=== PATIENT | male | born 1975 | race Caucasian/White ===

== ENCOUNTER 2019-05-22 23:54 | Emergency (ER) | payer SELFPAY ==
[2019-05-23 00:59] LABS: Absolute Lymphocytes (CBC) 1.6 K/uL (0.7-4.9); Basophils % 0.2 % (0-1.3); Eosinophils % 4.3 % (0-4.4); Hematocrit 45.5 % (39.6-49.0); Lymphocytes % 25.8 % (15.3-44.8); Monocytes % 11.1 % (3.3-12.3)
[2019-05-23 01:07] LABS: Protime INR 0.96
[2019-05-23 01:18] LABS: ALT/SGPT 17 U/L (12-78); AST/SGOT 11 U/L (15-37); Albumin 3.7 g/dL (3.4-5.0); Alkaline Phosphatase 63 U/L (45-117); BUN Blood Urea Nitrogen 25 mg/dL (7-18); Bicarbonate 26 mmol/L (21-32); Bilirubin Direct < 0.1 mg/dL (0-0.2); Bilirubin Total 0.3 mg/dL (0.2-1.0); Glucose Level 99 mg/dL (74-106); Lipase 110 U/L (73-393); Potassium 3.8 mmol/L (3.5-5.1); Protein, Total 7.5 g/dL (6.4-8.2); Sodium Level 141 mmol/L (136-145)
[2019-05-23] MEDS ORDERED: KETOROLAC 30 MG/ML INJ ONE (02:07)
[2019-05-23] MEDS ORDERED: ONDANSETRON 4 MG/2 ML VIAL ONE (02:08)
[2019-05-23] MEDS ORDERED: PANTOPRAZOLE 40 MG INJ ONE (02:08)
[2019-05-23] MEDS ORDERED: NA CHLORIDE 0.9% 1,000 ML ONE (02:08)
--- NOTE | 2019-05-23 02:31 | EDPHYS ---
Physician Documentation [facility] Name: Edward Novak Age: 43 yrs Sex: Male : 1975 Arrival Date: 05/22/2019 Time: 23:56 Bed 5 Private MD: ED Physician Aleksandr Fulton HPI: 05/23 00:45 This 43 yrs old Male presents to ER via Ambulatory with complaints of cp Abdominal Pain, Vomiting, Black/Tarry Stools. 00:45 The patient presents with abdominal pain in the epigastric area, in the upper abdomen. cp 00:45 Onset: The symptoms/episode began/occurred 3 day(s) ago. The symptoms radiate to right cp back. Associated signs and symptoms: Pertinent positives: nausea, vomiting, Pertinent negatives: chest pain, constipation, diarrhea, fever, palpitations, testicular pain, vomiting blood. The symptoms are described as waxing/waning. Patient reports noticing black stools today after taking Pepto Bismol. Historical: - Allergies: 00:17 No Known Allergies; aa1 - Home Meds: 00:17 None [Active]; aa1 - PMHx: 00:17 Pancreatitis; aa1 - PSHx: 00:17 None; aa1 - Immunization history:: Flu vaccine is not up to date. - Social history:: Smoking status: Patient uses tobacco products, smokes one-half pack cigarettes per day. - Ebola Screening: : No symptoms or risks identified at this time. ROS: 00:55 Constitutional: Positive for poor PO intake, Negative for body aches, chills, fever. cp 00:55 Eyes: Negative for injury, pain, redness, and discharge. cp 00:55 ENT: Negative for drainage from ear(s), ear pain, sore throat, difficulty swallowing, difficulty handling secretions. 00:55 Cardiovascular: Negative for chest pain, palpitations. 00:55 Respiratory: Negative for cough, shortness of breath, wheezing. 00:55 Abdomen/GI: Positive for abdominal pain, nausea and vomiting, anorexia, black/tarry stool, Negative for diarrhea, constipation. 00:55 Back: Positive for radiated pain. 00:55 : Negative for urinary symptoms, testicular pain 00:55 All other systems are negative. Exam: 01:06 Constitutional: The patient appears in no acute distress, alert, awake, cp non-diaphoretic, non-toxic, well developed, well nourished. 01:06 Head/Face: Normocephalic, atraumatic. cp 01:06 Eyes: Periorbital structures: appear normal, Conjunctiva: normal, no exudate, no injection, Sclera: no appreciated abnormality, Lids and lashes: appear normal, bilaterally. 01:06 ENT: External ear(s): are unremarkable, Nose: is normal, Mouth: Lips: moist, Oral mucosa: pink and intact, moist, Posterior pharynx: is normal, airway is patent, no erythema, no exudate. 01:06 Chest/axilla: Inspection: normal, Palpation: is normal, no crepitus, no tenderness. 01:06 Cardiovascular: Rate: normal, Rhythm: regular, Edema: is not appreciated, JVD: is not appreciated. 01:10 Respiratory: the patient does not display signs of respiratory distress, Respirations: cp normal, no use of accessory muscles, no retractions, no splinting, no tachypnea, labored breathing, is not present, Breath sounds: are clear throughout, no decreased breath sounds, no stridor, no wheezing. 01:10 Abdomen/GI: Inspection: abdomen appears normal, Bowel sounds: active, all quadrants, cp Palpation: soft, in all quadrants, moderate abdominal tenderness, in the epigastric area and right upper quadrant, rebound tenderness, is not appreciated, involuntary guarding, is not appreciated. 01:10 Back: ROM is normal. Vital Signs: 00:17 BP 128 / 88; Pulse 66; Resp 16; Temp 98.5; Pulse Ox 99% on R/A; Weight 79.38 kg; Height aa1 5 ft. 11 in. (180.34 cm); Pain 7/10; 00:30 BP 140 / 90; Pulse 74; Resp 17; Pulse Ox 98% ; rv 00:57 BP 140 / 90; Pulse 67; Resp 16; Temp 98.3; Pulse Ox 97% on R/A; rv 01:00 BP 115 / 70; Pulse 66; Resp 16; Pulse Ox 98% on R/A; rv 02:47 BP 120 / 75; Pulse 55; Resp 15; Temp 98.2; Pulse Ox 100% ; rv 00:17 Body Mass Index 24.41 (79.38 kg, 180.34 cm) aa1 MDM: 00:04 Patient medically screened. cp 01:00 Differential diagnosis: cholecystitis, Cholelithiasis, diverticulitis, non-specific abd cp pain, pancreatitis, Peptic Ulcer Disease, Perf. Duodenal Ulcer, Perf. Gastric Ulcer, Ureterolithiasis, urinary tract infection. 02:30 Data reviewed: vital signs, nurses notes, lab test result(s), radiologic studies, CT cp scan. 02:30 Counseling: I had a detailed discussion with the patient and/or guardian regarding: the cp historical points, exam findings, and any diagnostic results supporting the discharge/admit diagnosis, lab results, radiology results, the need for outpatient follow up, a pick up operator, to return to the emergency department if symptoms worsen or persist or if there are any questions or concerns that arise at home. Response to treatment: the patient's symptoms have markedly improved after treatment, Pain and nausea improved. No vomiting observed while in ED. CT negative for acute findings. Will discharge to home for continued monitoring. 05/23 00:46 Order name: PT-INR cp 05/23 00:46 Order name: Ptt, Activated cp 05/23 00:46 Order name: Basic Metabolic Panel cp 05/23 00:46 Order name: CBC with Diff cp 05/23 00:46 Order name: Creatinine for Radiology; Complete Time: 01: cp 05/23 00:46 Order name: Hepatic Function; Complete Time: 01: cp 05/23 01:34 Interpretation: Normal except: AST 11; GLOB 3.8; A/G 1.0. cp 05/23 00:46 Order name: CT Abd/Pelvis - IV Contrast Only cp 05/23 00:46 Order name: Lipase; Complete Time: 01:33 cp 05/23 00:47 Order name: Protime (+INR); Complete Time: 01:33 EDMS 05/23 00:47 Order name: PTT, Activated Partial Thromb; Complete Time: : EDMS 05/23 00:47 Order name: Basic Metabolic Panel; Complete Time: 01: EDMS 05/23 01:34 Interpretation: Normal except: CL 109; BUN 25; GFR 80. cp 05/23 00:47 Order name: CBC with Automated Diff; Complete Time: 01:33 EDMS 05/23 02:05 Interpretation: Reviewed. cp 05/23 00:46 Order name: IV Saline Lock; Complete Time: 00:55 cp 05/23 00:46 Order name: Labs collected and sent; Complete Time: 00:55 cp 05/23 01:35 Order name: NPO cp Administered Medications: 01:50 Drug: NS 0.9% 1000 ml Route: IV; Rate: 1 bolus; Site: right antecubital; ea 02:46 Follow up: IV Status: Completed infusion rv 01:55 Drug: ProTONIX 40 mg Route: IVP; Site: right antecubital; ea 02:46 Follow up: Response: No adverse reaction rv 01:56 Drug: TORadol 30 mg Route: IVP; Site: right antecubital; ea 02:46 Follow up: Response: No adverse reaction rv 01:58 Drug: Zofran 4 mg Route: IVP; Site: right antecubital; ea 02:46 Follow up: Response: No adverse reaction rv 02:45 Drug: GI Cocktail without - (Maalox Suspension 30 ml, Lidocaine Liquid 2 % 15 rv ml) Route: PO; 02:45 Follow up: Response: Medication administered at discharge. rv Disposition: 05/23/19 02:31 Discharged to Home. Impression: Upper abdominal pain, unspecified. - Condition is Stable. - Discharge Instructions: Abdominal Pain, Adult. - Prescriptions for Protonix 40 mg Oral Tablet - take 1 tablet by ORAL route once daily; 30 tablet. - Medication Reconciliation Form, Thank You Letter, Antibiotic Education, Prescription Opioid Use form. - Follow up: Pilo Clark MD; When: 1 week; Reason: Recheck today's complaints. - Problem is new. - Symptoms have improved. Addendum: 05/26/2019 19:26 Co-signature as Attending Physician, Aleksandr Fulton MD. g s Signatures: Dispatcher [employer] EDMS Corazon Kumar RN RN aa1 Martín Mai PA PA cp Antunez, Elena, RN RN ea Starr, Gregory, MD MD gs Vicente, Ronaldo RN RN rv Corrections: (The following items were deleted from the chart) 05/23 02:48 02:31 05/23/2019 02:31 Discharged to Home. Impression: Upper abdominal pain, rv unspecified. Condition is Stable. Forms are Medication Reconciliation Form, Thank You Letter, Antibiotic Education, Prescription Opioid Use. Follow up: Pilo Clark; When: 1 week; Reason: Recheck today's complaints. Problem is new. Symptoms have improved. cp
--- NOTE | 2019-05-23 02:31 | ER ---
Nurse's Notes [facility] Name: Edward Novak Age: 43 yrs Sex: Male : 1975 Arrival Date: 05/22/2019 Time: 23:56 Bed 5 Private MD: Diagnosis: Upper abdominal pain, unspecified Presentation: 05/23 00:06 Presenting complaint: Patient states: upper abd pain and vomiting x 3 days. Reports aa1 symptoms worse after eating. States he noticed today his stool was black but reports he did take multiple doses of pepto bismol. Transition of care: patient was not received from another setting of care. Onset of symptoms was May 20, 2019. Risk Assessment: Do you want to hurt yourself or someone else? Patient reports no desire to harm self or others. Initial Sepsis Screen: Does the patient meet any 2 criteria? No. Patient's initial sepsis screen is negative. Does the patient have a suspected source of infection? No. Patient's initial sepsis screen is negative. Care prior to arrival: None. 00:06 Method Of Arrival: Ambulatory aa1 00:06 Acuity: MILDRED 3 aa1 Triage Assessment: 00:17 General: Appears in no apparent distress. comfortable, Behavior is calm, cooperative, aa1 appropriate for age. Historical: - Allergies: 00:17 No Known Allergies; aa1 - Home Meds: 00:17 None [Active]; aa1 - PMHx: 00:17 Pancreatitis; aa1 - PSHx: 00:17 None; aa1 - Immunization history:: Flu vaccine is not up to date. - Social history:: Smoking status: Patient uses tobacco products, smokes one-half pack cigarettes per day. - Ebola Screening: : No symptoms or risks identified at this time. Screenin:11 Abuse screen: Denies threats or abuse. Denies injuries from another. Nutritional rv screening: No deficits noted. Tuberculosis screening: No symptoms or risk factors identified. Fall Risk None identified. Assessment: 00:10 General: Appears in no apparent distress. uncomfortable, Behavior is calm, cooperative. rv Pain: Complains of pain in abdomen. Pain: Pain currently is 7 out of 10 on a pain scale. at worst was 8 out of 10 on a pain scale. Pain: Quality of pain is described as sharp. Neuro: Level of Consciousness is awake, alert, obeys commands, Oriented to person, place, time, situation. Cardiovascular: Patient's skin is warm and dry. Respiratory: Airway is patent. GI: Bowel sounds present X 4 quads. Abd is soft Abdomen is tender to palpation X 4 quads. GI: Reports diarrhea. : No signs and/or symptoms were reported regarding the genitourinary system. EENT: No signs and/or symptoms were reported regarding the EENT system. Derm: Skin is intact. Musculoskeletal: No signs and/or symptoms reported regarding the musculoskeletal system. Vital Signs: 00:17 BP 128 / 88; Pulse 66; Resp 16; Temp 98.5; Pulse Ox 99% on R/A; Weight 79.38 kg; Height aa1 5 ft. 11 in. (180.34 cm); Pain 7/10; 00:30 BP 140 / 90; Pulse 74; Resp 17; Pulse Ox 98% ; rv 00:57 BP 140 / 90; Pulse 67; Resp 16; Temp 98.3; Pulse Ox 97% on R/A; rv 01:00 BP 115 / 70; Pulse 66; Resp 16; Pulse Ox 98% on R/A; rv 02:47 BP 120 / 75; Pulse 55; Resp 15; Temp 98.2; Pulse Ox 100% ; rv 00:17 Body Mass Index 24.41 (79.38 kg, 180.34 cm) aa1 ED Course: 05/22 23:56 Patient arrived in ED. es 07 00:03 Martín Mai PA is PHCP. cp 00:03 Aleksandr Fulton MD is Attending Physician. cp 00:09 Laurent Bermudez RN is Primary Nurse. rv 00:11 Patient has correct armband on for positive identification. Placed in gown. Bed in low rv position. Call light in reach. Side rails up X 1. Adult w/ patient. Pulse ox on. NIBP on. 00:13 Triage completed. aa1 00:17 Arm band placed on right wrist. Patient placed in an exam room, on a stretcher. aa1 00:55 Ptt, Activated Sent. rv 00:55 PT-INR Sent. rv 00:55 Basic Metabolic Panel Sent. rv 00:55 CBC with Diff Sent. rv 00:56 Inserted saline lock: 20 gauge in right forearm, using aseptic technique. Blood rv collected. 01:42 CT Abd/Pelvis - IV Contrast Only In Process Unspecified. EDMS 02:30 Pilo Clark MD is Referral Physician. cp 02:47 No provider procedures requiring assistance completed. IV discontinued, intact, rv bleeding controlled, No redness/swelling at site. Pressure dressing applied. Administered Medications: 01:50 Drug: NS 0.9% 1000 ml Route: IV; Rate: 1 bolus; Site: right antecubital; ea 02:46 Follow up: IV Status: Completed infusion rv 01:55 Drug: ProTONIX 40 mg Route: IVP; Site: right antecubital; ea 02:46 Follow up: Response: No adverse reaction rv 01:56 Drug: TORadol 30 mg Route: IVP; Site: right antecubital; ea 02:46 Follow up: Response: No adverse reaction rv 01:58 Drug: Zofran 4 mg Route: IVP; Site: right antecubital; ea 02:46 Follow up: Response: No adverse reaction rv 02:45 Drug: GI Cocktail without - (Maalox Suspension 30 ml, Lidocaine Liquid 2 % 15 rv ml) Route: PO; 02:45 Follow up: Response: Medication administered at discharge. rv Outcome: 02:31 Discharge ordered by MD. cp 02:48 Discharged to home ambulatory. rv 02:48 Condition: good 02:48 Discharge instructions given to patient, family, Instructed on discharge instructions, follow up and referral plans. medication usage, Demonstrated understanding of instructions, follow-up care, medications, Prescriptions given X 1. 02:48 Patient left the ED. rv Signatures: Dispatcher [employer] EDCorazon Troy RN RN aa1 Laura Powell Corey, PA PA Margoth Crowell RN RN Laurent Bob RN RN rv
[2019-05-23] MEDS ORDERED: MAGNE/ALUM HYDROXD 30 ML UCUP ONE (02:50)
[2019-05-23] MEDS ORDERED: LIDOCAINE VISCOUS 2% SOLN 15 ML UDC ONE (02:51)
--- NOTE | 2019-05-23 09:11 | RAD REPORT ---
EXAM DESCRIPTION: CT - Abdomen Pelvis W Contrast - 05/23/2019 2:43 am CLINICAL HISTORY: The patient is 43 years old and is Male; right upper abdomen pain TECHNIQUE: Axial computed tomography images of the abdomen and pelvis with intravenous contrast. S agittal and coronal reformatted images were created and reviewed. This CT exam was performed using one or more of the following dose reduction techniques: automated exposure control, adjustment of t he mA and/or kV according to patient size, and/or use of iterative reconstruction technique. COMPARISON: No relevant prior studies available. FINDINGS: LUNG BASES: Unremarkable. No mass. No consolidation. ABDOMEN: LIVER: Unremarkable. No mass. GALLBLADDER AND BILE DUCTS: No calcified stones. No ductal dilation. PANCREAS: No ductal dilation. No mass. SPLEEN: Unremarkable. ADRENALS: Unremarkable. No mass. KIDNEYS AND URETERS: Unremarkable. No solid mass. No hydronephrosis. STOMACH AND BOWEL: Stomach is moderately distended. The small bowel is normal in caliber. A mode rate amount stool is present throughout the colon. There is no mucosal thickening or evidence of ike l obstruction. PELVIS: APPENDIX: The appendix is normal in caliber without surrounding inflammation. BLADDER: Unremarkable. No mass. REPRODUCTIVE: Unremarkable as visualized. ABDOMEN and PELVIS: INTRAPERITONEAL SPACE: Unremarkable. No free air. No significant fluid collection. BONES/JOINTS: No acute fracture. SOFT TISSUES: The soft tissues are normal. VASCULATURE: Unremarkable. No abdominal aortic aneurysm. LYMPH NODES: Unremarkable. No enlarged lymph nodes. IMPRESSION: No acute findings on this contrasted CT of the abdomen and pelvis to explain the patient 's symptoms. Electronically signed by: Mayra Montes De Oca MD 05/23/2019 1:56 AM CDT Due to temporary technical issues with the PACS/Fluency reporting system, reports are being signed by the in house radiologist as a courtesy to ensure prompt reporting. The interpreting radiologist is f ully responsible for the content of the report.
== END 2019-05-23 02:48 | disposition home or self-care (01) ==
LOC: ER 23:54
DX: R10.10 Upper abdominal pain, unspecified (principal); F17.210 Nicotine dependence, cigarettes, uncomplicated
CPT/HCPCS: 36415; 74177; 80048; 80076; 83690; 85025; 85610; 85730; 96361; 96374; 96375; 99284; C9113; J2405; J7030; Q9967

== ENCOUNTER 2023-07-17 11:49 | Emergency (ER) | payer OTHER, SELFPAY ==
--- OUTSIDE RECORDS SUMMARY | 2023-07-17 11:52 | XMS REPORT | Continuity of Care Document ---
:1975 Author Organization [facility] t Address [address] [facility] [place] [address] Care Team Providers Name Role Phone PCP, PATIENT DOES NOT HAVE A Primary Care Physician Unavaila ble MILAGROS CHAVEZ Attending Clinician Unavailable Milagros Chavez MD Attending Clinician MILAGROS CHAVEZ Admitting Clinician Unavailable Payers Payer Name Policy Type Policy Number Effective Date Expiration Date S ource [facility] [id number] Problems This patient has no known problems. Allergies, Adverse Reactions, Alerts Allergy Allergy Status Severity Reaction(s) Onset Inactive Treating Comm ents Source Name Type Date Date Clinician Latex Propensi Active Rash Univers ty to 16 ity of adverse 00:00: [place] reaction [address] [place] [address] LATEX DRUG Active Rash Univers INGREDI 16 ity of 00:00: [place] [address] [place] [address] Social History Social Habit Start Date Stop Date Quantity Comments Source History of tobacco Snuff User Univer sity of use [facility] Cigarettes smoked 2023-05-03 2023-05-03 Univers ity of current (pack per 00:00:00 00:00:00 ) - Reported Branch Cigarette 2023-05-03 2023-05-03 University of pack-years 00:00:00 00:00:00 [facility] Tobacco use and 2023-05-03 2023-05-03 User of Universit y of exposure 00:00:00 00:00:00 smokeless [facility] Alcohol intake 2023-05-03 2023-05-03 Ex-drinker University of 00:00:00 00:00:00 (finding) [facility] Tobacco Comment 2023-05-03 2023-05-03 Down to 5-6 cigs Uni versity of 00:00:00 00:00:00 /day [facility] Alcohol Comment 2023-05-03 2023-05-03 quit 2016 Universit y of 00:00:00 00:00:00 [facility] Sex [birth year] Universit y of 00:00:00 00:00:00 [facility] Smoking Status Start Date Stop Date Source Smokes tobacco daily 2023-05-03 00:00:00 [facility] Medications Ordered Filled Start Stop Current Ordering Indication Dosage Frequency Signature Comments Components Source Medication Medication Date Date Medication? Clinician (SIG) Name Name cefTRIAXone 2022- No 500mg 500 mg, IV Univers (ROCEPHIN) 05-04 Piggyback, it y of 500 mg in 03:00: 03:21 [place]CE, 1 [place] NaCl 0.9% 00 :00 dose, On Medica l (NS) 100 mL [facility] piggyback 05/03/23 at 2200, Administer over 30 Minutes, 100 mL
R cecilia for Anti-Infec tive: Empiric Therapy for Suspected Infection< br>Empiric Therapy Site: Other
O ther site: testicles< br>Duratio n of therapy: 72 hours levoFLOXaci 2022- No 500mg 500 mg, U nivers n 05-04 Oral, ity of (LEVAQUIN) 02:30: 02:47 ONCE, 1 [place] as tablet 500 00 :00 dose, On Medic al mg [facility] 05/03/23 at 2130, HEATHER
Re ason for Anti-Infec tive: Empiric Therapy for Suspected Infection< br>Empiric Therapy Site: Urine
D uration of therapy: 72 hours doxycycline 2022- No 100mg 100 mg, U nivers hyclate 05-04 Oral, ity of (Vibramycin 02:30: 02:47 [place]CE, 1 [place] capsule 00 :00 dose, On Medica l 100 mg Angelina Branch 05/03/23 at 2130, HEATHER
Re ason for Anti-Infec tive: Empiric Therapy for Suspected Infection< br>Empiric Therapy Site: Urine
D uration of therapy: 5 days ketorolac 2022- No 30mg 30 mg, Unive rs (TORADOL) 05-04 Slow IV ity of injection 01:00: 00:18 Push, [place] 30 mg 00 :00 ONCE, 1 Medical dose, On Branch Angelina 05/03/23 at 2000, HEATHER NaCl 0.9% 2022- No 1000mL at 999 Uni vers (NS) bolus 05-04 mL/hr, ity of infusion 00:45: 02:47 1,000 mL, John as 1,000 mL 00 :00 IV Medical Infusion, Branch ONCE, 1 dose, On Angelina 05/03/23 at 1945, HEATHER doxycycline 2022- Yes [id number] 100mg Take 1 Univers hyclate 100 05-04 capsule by i ty of mg capsule 00:00: 04:59 [place] :00 the Medical morning Branch and 1 capsule in the evening. Do all this for 10 days. levoFLOXaci 2022- Yes [id number] 500mg Take 1 Univers n 05-04-26 tablet by ity of (LEVAQUIN) 00:00: 04:59 mouth [place] 500 mg 00 :00 every 24 Medical tablet (twenty-fo Branch ur) hours for 9 days. hydrocortis Yes 25mg Insert 1 Un [place] one 25 mg 5-03 Suppositor ity of suppository 00:00: y [place] 00 rectum 2 Medical (two) Branch times daily. acetaminoph Yes 1{tbl} Take 1 Un [place]ul[place] en-codeine 5-03 tablet by ity of 300-30 mg 00:00: mouth [place] tablet 00 every 6 Medical (six) Branch hours as needed for Pain (scale 4-6). acetaminoph Yes 1{tbl} Take 1 Un [place] en-codeine 9-27 tablet by ity of (TYLENOL 00:00: mouth [place] #3) 300-30 00 every 4 Medica l mg tablet (four) Branch hours as needed for Pain unrelieved by non-narcot ic analgesics . ibuprofen Yes 800mg Take 1 Unive rs (MOTRIN) 9-27 tablet by ity of 800 mg 00:00: mouth [place] tablet 00 every 8 Medical (eight) Branch hours as needed for Pain (scale 1-3), Pain (scale 4-6) or Alternate with [place] for pain scale 1-3. proMETHazin Yes 12.5mg Take 1 Un paulina e 9-27 tablet by ity of (PHENERGAN) 00:00: mouth [place] 12.5 mg 00 every 6 Medical tablet (six) Branch hours as needed for Nausea and Vomiting (N/V). HYDROcodone Yes 1{tbl} Take 1 Tab Univers -acetaminop 8-17 by mouth ity of hen (NORCO 00:00: every 6 [place] 5) 5-325 mg 00 (six) Medical tablet hours as Branch needed for Pain (scale 4-6). famotidine Yes 20mg Take 1 Tab U nivers (PEPCID) 20 8-17 by mouth 2 it y of mg tablet 00:00: (two) [place] 00 times Medical daily. Branch Vital Signs Vital Name Observation Time Observation Value Comments Source Systolic blood 2023-05-04 03:00:00 112 [facility] Diastolic blood 2023-05-04 03:00:00 75 mm[Hg] [facility] Heart rate 2023-05-04 02:00:00 55 /min [facility] Oxygen saturation in 2023-05-04 02:00:00 97 /min [facility] Arterial blood by [facility] Pulse oximetry Branch Respiratory rate 2023-05-04 00:12:00 16 /min [facility] Body temperature 2023-05-03 23:14:00 37 Elvi [facility] Body height 2023-05-03 23:14:00 182.9 cm [facility] Body weight 2023-05-03 23:14:00 79.379 kg [facility] BMI 2023-05-03 23:14:00 23.73 kg/m2 [facility] Procedures Procedure Date / Time Performed Performing Clinician Erika e URINALYSIS 2023-05-04 00:51:00 Mariaa King [facility] BASIC METABOLIC PANEL 2023-05-04 00:08:00 Milagros Chavez [facility] (NA, K, CL, CO2, Medical Branch GLUCOSE, BUN, CREATININE, CA) CBC WITH DIFF 2023-05-04 00:08:00 Milagros Chavez [facility] NOTICE OF PRIVACY 2023-05-03 23:10:47 Doctor Unassigned, No [facility] PRACTICES Name Medical Branch CONSENT/REFUSAL FOR 2023-05-03 23:08:33 Doctor Unassigned, No [facility] DIAGNOSIS AND Name Medical Branch TREATMENT Encounters Start End Encounter Admission Attending Care Care Encounter Source Date/Time Date/Time Type Type Clinicians Facility Department ID 2023-05-03 2023-05-03 Emergency X [facility] ERT [id number] [facility] 18:16:00 22:29:00 , MILAGROS couch [facility] 2023-05-03 2023-05-03 Emergency [facility] [id number] [facility] 18:16:00 22:29:00 , Milagros REES [id number] i [facility] [id number] [facility] [id number] [place] [id number] Branch Results Test Description Test Time Test Comments Results Result Comments Source BASIC METABOLIC PANEL (NA, K, CL, CO2, GLUCOSE, BUN, 2023-04 00:44:58 CREATININE, CA) Test Item Value Reference Range Interpretation Comme nts NA (test code = 6662517796) 142 mmol/L 135-145 K (test code = 8241846522) 4.3 mmol/L 3.5-5.0 CL (test code = 6067754977) 106 mmol/L 98-108 CO2 TOTAL (test code = 9325584646) 25 mmol/L 23-31 AGAP (test code = 6173433626) 11 2-16 BUN (test code = 7027948313) 24 mg/dL 7-23 H GLUCOSE (test code = 4785568572) 101 mg/dL 70-110 CREATININE (test code = 0.87 mg/dL 0.60-1.25 7969407771) CALCIUM (test code = 1310290704) 9.8 mg/dL 8.6-10.6 eGFR (test code = 3596897326) 94.1 mL/min/1.73m2 FRANK (test code = FRANK) Association of Glomerular Filtration Rate (GFR) and Staging of Kidney Disease* + +-------- + ------+| GFR (mL/min/1.73 m2) ?| With Kidney Damage ?| ?Without Kidney Damage+ +-- + +| ?>90 ?| ?Stage one ?| ? Normal ?+ +------- + -------+| ?60-89 ?| ?Stage two ?| ? Decreased GFR ? + +-------- + ------+| ?30-59 ?| ?Stage three ?| ? Stage three ? + +-------- + ------+| ?15-29 ?| ?Stage four ? | ? Stage four ?+ +------- + -------+| ?<15 (or dialysis) ? ?| ?Stage five ? | ? Stage five ?+ +------- + -------+ *Each stage assumes the associated GFR level has been in effect for at least three months. ?Stages 1 to 5, with or without kidney disease, indicate chronic kidney disease. Notes: Determination of stages one and two (with eGFR >59mL/min/1.73 m2) requires estimation of kidney damage for at least three months as defined by structural or functional abnormalities of the kidney, manifested by either:Pathological abnormalities or Markers of kidney damage (including abnormalities in the composition of the blood or urine or abnormalities in imaging tests). Lab Interpretation (test code = Abnormal 12268-0) [facility] WITH [id number] 00:30:55 Test Item Value Reference Range Interpretation Comments WBC (test code = 8.57 See_Comment [Automated 6930-2) message] The sy stem which generated this result transmitted reference range : 4.20 - 10.70 10*3/?L. The reference range was not used to interpret this result as normal/abnormal . RBC (test code = 5.03 See_Comment [Automated 789-8) message] The sy stem which generated this result transmitted reference range : 4.26 - 5.52 10*6/?L. The reference range was not used to interpret this result as normal/abnormal . HGB (test code = 14.3 g/dL 12.2-16.4 718-7) HCT (test code = 41.7 % 38.4-49.3 4544-3) MCV (test code = 82.9 fL 81.7-95.6 787-2) MCH (test code = 28.4 pg 26.1-32.7 785-6) MCHC (test code = 34.3 g/dL 31.2-35.0 786-4) RDW-SD (test code = 38.1 fL 38.5-51.6 L 26567-1) RDW-CV (test code = 12.6 % 12.1-15.4 788-0) PLT (test code = 244 See_Comment [Automated 777-3) message] The sy stem which generated this result transmitted reference range : 150 - 328 10*3/ ?L. The reference r nancy was not used to interpret this result as normal/abnormal . MPV (test code = 9.6 fL 9.8-13.0 L 61704-0) NRBC/100 WBC (test 0.0 See_Comment [Automat ed code = 4192003721) message] The system which generated this result transmitted reference range : 0.0 - 10.0 /100 WBCs. The refer ence range was not u sed to interpret th is result as normal/abnormal . NRBC x10^3 (test code See_Comment [Auto mated = 7904597153) message] The s ystem which generated this result transmitted reference range : 10*3/?L. The reference range was not used to interpret this result as normal/abnormal . GRAN MAT (NEUT) % 55.1 % (test code = 770-8) IMM GRAN % (test code 0.20 % = 2529466315) LYMPH % (test code = 32.4 % 736-9) MONO % (test code = 7.4 % 5905-5) EOS % (test code = 4.4 % 713-8) BASO % (test code = 0.5 % 706-2) GRAN MAT x10^3(ANC) 4.72 10*3/uL 1.99-6.95 (test code = 4782762812) IMM GRAN x10^3 (test 0.00-0.06 code = 3820610423) LYMPH x10^3 (test code 2.78 10*3/uL 1.09-3.23 = 731-0) MONO x10^3 (test code 0.63 10*3/uL 0.36-1.02 = 742-7) EOS x10^3 (test code = 0.38 10*3/uL 0.06-0.53 711-2) BASO x10^3 (test code 0.04 10*3/uL 0.01-0.09 = 704-7) Lab Interpretation Abnormal (test code = 51997-4) [facility], [id number] 19:06:22 Test Item Value Reference Range Interpretation Comments GONORRHEA, NAAT NEGATIVE NEGATIVE IMPORTA NT NOTICE: SEE (test code = [place] [address]) [email or web address] Note: Assay methodology is nucleic acid amplification b y garden equipment mechanic m ediated amplification ( TMA) utilizing the A ptima Combo 2 Assay. CHLAMYDIA, NAAT, [id number] 19:06:22 Test Item Value Reference Range Interpretation Comments CHLAMYDIA, NAAT NEGATIVE NEGATIVE IMPORTA NT NOTICE: SEE (test code = [place] [address]) [email or web address] Note: Assay methodology is nucleic acid amplification b y garden equipment mechanic m ediated amplification ( TMA) utilizing the A ptima Combo 2 Assay. HIV 1/2 4TH GEN, RFLX [id number] 04:16:22 Test Item Value Reference Range Interpretation Comments HIV 1/2 4TH GEN, RFLX CONF (test NON-REACTIVE NON-REACTIVE code = 3514) HEPATITIS PANEL, [id number] 04:16:22 Test Item Value Reference Range Interpretation Comments HEPATITIS A IgM (test NON-REACTIVE NON-REACTIVE code = 75026) HEPATITIS B CORE IgM NON-REACTIVE NON-REACTIVE (test code = 4644) HEPATITIS B SURF AG NON-REACTIVE NON-REACTIVE (test code = 2739) HEPATITIS C ANTIBODY NON-REACTIVE NON-REACTIVE (test code = 4675) INTERPRETATION (NOTE) Hepatitis A HEPATITIS A: (test code sero logy shows no = 2552) evidence of acu te hepatitis A. INTERPRETATION (NOTE) Hepatitis B HEPATITIS B: (test code sero logy shows no = 36000) evidence of acu te hepatitis B and no indication of exposure to hepatitis B vir us in the previous kelsey eight months. INTERPRETATION (NOTE) Hepatitis C HEPATITIS C: (test code sero logy shows no = 10832) evidence of exposure to hepatitisC viru s at this time. I t can take up to 12 months after exposure tothe hepatitis C vir us for antibodies to become detectab le in the blood in certain patient s. [id number] 03:52:23 Test Item Value Reference Range Interpretation Comments RPR RESULT (test NON-REACTIVE NON-REACTIVE code = 3501) RPR TITER (test NOT INDIC. NOT INDIC. UNLESS OTHE RWISE code = 3500) TITER INDICATED, ALL TESTING PERFORMED [facility] [address] [place] [address] 4 LABORATORY DIRE CTOR: SUNNI THOMAS M.D. CLIA NUMBER [id number] [facility] [place] [id number]"
[2023-07-17 12:35] LABS: Absolute Lymphocytes (CBC) 2.9 K/uL (0.7-4.9); Hematocrit 44.7 % (39.6-49.0); MCV 84.6 fL (80-100); MPV 7.5 fL (7.6-11.3); Platelets 271 thou/uL (152-406); RBC Red Blood Cell Count 5.28 M/uL (4.33-5.43)
[2023-07-17 12:57] LABS: Albumin 3.9 g/dL (3.4-5.0); Bilirubin Direct 0.1 mg/dL (0-0.2); Bilirubin Indirect, Calculated 0.4 mg/dL (0.2-0.8); Bilirubin Total 0.5 mg/dL (0.2-1.0); Magnesium 2.2 mg/dL (1.6-2.4); Protein, Total 8.5 g/dL (6.4-8.2); Troponin High Sensitivity 4.2 pg/mL (<58.9)
[2023-07-17] MEDS ORDERED: ALBUTEROL 2.5 MG/3 ML NEB SOL ONE ×2 (13:04→14:25)
[2023-07-17] MEDS ORDERED: IPRATROPIUM BROM 0.5MG/2.5ML ONE ×2 (13:04→14:25)
--- NOTE | 2023-07-17 13:53 | RAD REPORT ---
EXAM DESCRIPTION: RAD - Chest Single View - 07/17/2023 1:37 pm CLINICAL HISTORY: COUGH Chest pain. COMPARISON: <Comparisons> FINDINGS: Portable technique limits examination quality. The lungs are grossly clear. The heart is normal in size. No displaced fractures. IMPRESSION: No acute intrathoracic process suspected.
--- NOTE | 2023-07-17 13:54 | EDPHYS ---
Physician Documentation [facility] Name: Edward Novak Jr Age: 47 yrs Sex: Male : 1975 Arrival Date: 07/17/2023 Time: 11:49 Bed 5 Private MD: ED Physician Ana Moya HPI: 07/17 12:54 This 47 yrs old Male presents to ER via Ambulatory with complaints of Shortness Of sp3 Breath, Cough, Sore Throat. 12:54 47-year-old male with history of pancreatitis not currently drinking presents with a sp3 2-day history of cough, shortness of breath and wheezing. He denies fever, chest pain per se, abdominal pain, nausea, vomiting, diarrhea, syncope, near syncope, known sick contacts, travel history, or any other signs or symptoms at this time. Cough is productive with yellow/green mucus production. ROS otherwise negative.. Historical: - Allergies: 12:11 Latex, Natural Rubber; cm10 - Home Meds: 12:11 None [Active]; cm10 - PMHx: 12:11 Pancreatitis; cm10 - PSHx: 12:11 None; cm10 - Immunization history:: Adult Immunizations unknown. - Social history:: Smoking status: Patient reports the use of cigarette tobacco products, denies chronic smoking, but will smoke occasionally. ROS: 12:56 Constitutional: Negative for fever, chills, and weight loss, Eyes: Negative for injury, sp3 pain, redness, and discharge, ENT: Negative for injury, pain, and discharge, Neck: Negative for injury, pain, and swelling, Cardiovascular: Negative for chest pain, palpitations, and edema, Abdomen/GI: Negative for abdominal pain, nausea, vomiting, diarrhea, and constipation, Back: Negative for injury and pain, MS/Extremity: Negative for injury and deformity, Skin: Negative for injury, rash, and discoloration, Neuro: Negative for headache, weakness, numbness, tingling, and seizure, Psych: Negative for depression, anxiety, suicide ideation, homicidal ideation, and hallucinations, Allergy/Immunology: Negative for hives, rash, and allergies, Endocrine: Negative for neck swelling, polydipsia, polyuria, polyphagia, and marked weight changes. 12:56 All other systems are negative. Exam: 12:56 Constitutional: This is a well developed, well nourished patient who is awake, alert, sp3 and in no acute distress. Head/Face: Normocephalic, atraumatic. Eyes: Pupils equal round and reactive to light, extra-ocular motions intact. Lids and lashes normal. Conjunctiva and sclera are non-icteric and not injected. Cornea within normal limits. Periorbital areas with no swelling, redness, or edema. ENT: Nares patent. No nasal discharge, no septal abnormalities noted. External auditory canals are clear. Oropharynx with no redness, swelling, or masses, exudates, or evidence of obstruction, uvula midline. Mucous membranes moist. Neck: Trachea midline, no thyromegaly or masses palpated, and no cervical lymphadenopathy. Supple, full range of motion without nuchal rigidity, or vertebral point tenderness. No Meningismus. Chest/axilla: Normal chest wall appearance and motion. Nontender with no deformity. No lesions are appreciated. Cardiovascular: Regular rate and rhythm with a normal S1 and S2. No gallops, murmurs, or rubs. Normal PMI, no JVD. No pulse deficits. Abdomen/GI: Soft, non-tender, with normal bowel sounds. No distension or tympany. No guarding or rebound. No evidence of tenderness throughout. Back: No spinal tenderness. No costovertebral tenderness. Full range of motion. Skin: Warm, dry with normal turgor. Normal color with no rashes, no lesions, and no evidence of cellulitis. MS/ Extremity: Pulses equal, no cyanosis. Neurovascular intact. Full, normal range of motion. Neuro: Awake and alert, GCS 15, oriented to person, place, time, and situation. Cranial nerves II-XII grossly intact. Motor strength 5/5 in all extremities. Sensory grossly intact. Cerebellar exam normal. Normal gait. Psych: Awake, alert, with orientation to person, place and time. Behavior, mood, and affect are within normal limits. 12:56 Respiratory: Active cough and wheezing bilaterally inspiratory and expiratory.. 13:17 ECG was reviewed by the Attending Physician. EKG demonstrates normal sinus rhythm at 67 sp3 bpm with normal intervals, normal QRS, normal axis, normal ST/T-segment's without evidence of ischemia. Vital Signs: 12:09 BP 117 / 83; Pulse 76; Resp 16; Temp 97.9; Pulse Ox 97% ; Weight 79.38 kg; Height 6 ft. cm10 1 in. ; Pain 5/10; 13:34 BP 121 / 76; Pulse 71; Resp 18; Pulse Ox 99% on R/A; ld1 14:42 BP 118 / 71; Pulse 69; Resp 18; Pulse Ox 100% on R/A; Pain 0/10; ld1 12:09 Body Mass Index 23.09 (79.38 kg, 185.42 cm) cm10 12:09 Pain Scale: Adult cm10 14:42 Pain Scale: Adult ld1 MDM: 12:12 Patient medically screened. sp3 12:57 Data reviewed: vital signs, nurses notes, lab test result(s), EKG, radiologic studies. sp3 ED course: 47-year-old male with pancreatitis history now with bronchitis and possible pneumonia. I am not highly suspicious for acute coronary syndrome, aortic dissection or aneurysm, mediastinitis, GI pathology, sepsis, shock, or any other critical pathology. Will obtain chest x-ray, laboratory values and swabs and administer albuterol initially with additional steroid if indicated and x-ray is negative. Disposition likely discharge after patient work-up and continue supportive care.. 13:52 ED course: Chest x-ray demonstrates no pneumonia and laboratory values are normal sp3 except for flu be positive. We will at this point give Solu-Medrol 125 mg IV and secondary albuterol treatment prior to discharge with general precautions and albuterol inhaler.. 07/17 12:02 Order name: Basic Metabolic Panel; Complete Time: 13:32 sp3 07/17 12:02 Order name: CBC with Diff; Complete Time: 13: sp3 07/17 12:02 Order name: D-Dimer; Complete Time: 13:32 sp3 07/17 12:02 Order name: LFT's; Complete Time: 13:32 sp3 07/17 12:02 Order name: Magnesium; Complete Time: 13:32 sp3 07/17 12:02 Order name: NT PRO-BNP; Complete Time: 13:32 sp3 07/17 12:02 Order name: Troponin HS; Complete Time: 13:32 sp3 07/17 12:02 Order name: SARS-COV-2 RT PCR; Complete Time: 13:32 sp3 07/17 12:02 Order name: Flu; Complete Time: 13:32 sp3 07/17 12:02 Order name: Strep sp3 07/17 13:01 Order name: Throat Culture EDMS 07/17 12:02 Order name: XRAY Chest (1 view); Complete Time: 14:02 sp3 07/17 12:02 Order name: EKG; Complete Time: 12:03 sp3 07/17 12:02 Order name: Cardiac monitoring; Complete Time: 13:32 sp3 07/17 12:02 Order name: EKG - Nurse/Tech; Complete Time: 13:32 sp3 07/17 12:02 Order name: IV Saline Lock; Complete Time: 12:24 sp3 07/17 12:02 Order name: Labs collected and sent; Complete Time: 12:24 sp3 07/17 12:02 Order name: O2 Per Protocol; Complete Time: 12:24 sp3 07/17 12:02 Order name: O2 Sat Monitoring; Complete Time: 12:24 sp3 Administered Medications: 13:09 Drug: DuoNeb Nebulize (3:1) (2.5 mg - 0.5 mg) 3 ml Route: Nebulizer; ld1 14:40 Follow up: Response: No adverse reaction ap3 14:17 Drug: MethylPrednisoLONE IVP 125 mg Route: IVP; Site: right forearm; ld1 14:40 Follow up: Response: No adverse reaction ap3 14:17 Drug: DuoNeb Nebulize (3:1) (2.5 mg - 0.5 mg) 3 ml Route: Nebulizer; ld1 14:41 Follow up: Response: No adverse reaction ap3 Disposition Summary: 07/17/23 13:54 Discharge Ordered Location: Home sp3 Condition: Stable sp3 Diagnosis - Influenza B, bronchitis, bronchospasm sp3 Followup: sp3 - With: Private Physician - When: - Reason: Continuance of care Discharge Instructions: - Discharge Summary Sheet sp3 - Tripp Influenza, Adult sp3 - Bronchospasm, Adult sp3 Forms: - Medication Reconciliation Form sp3 - Thank You Letter sp3 - Antibiotic Education sp3 - Prescription Opioid Use sp3 - Patient Portal Instructions sp3 - Leadership Thank You Letter sp3 Prescriptions: - albuterol sulfate 90 mcg/actuation Inhalation HFA Aerosol Inhaler - inhale 1 Cartridge by INHALATION route every 6 hours as needed for sp3 bronchospasm; administer via ventilator; 1 unit; Refills: 0, Product Selection Permitted Signatures: Dispatcher [employer] Jayne Quinteros RN RN ld1 Ana Moya MD MD sp3 Makayla Paz RN RN cm10 Lakshmi Bustillos RN ap3
--- NOTE | 2023-07-17 13:54 | ER ---
Nurse's Notes [facility] Name: Edward Novak Jr Age: 47 yrs Sex: Male : 1975 Arrival Date: 07/17/2023 Time: 11:49 Bed 5 Private MD: Diagnosis: Influenza B, bronchitis, bronchospasm Presentation: 07/17 12:09 Chief complaint: Patient states: for the last 3 weeks he has had cough, fever, cm10 shortness of breath and sore throat. Pt states that he has not had a fever this week. Pt reports that daughter is sick. Coronavirus screen: Vaccine status: Patient reports being unvaccinated. Client denies travel out of the [place] in the last 14 days. Ebola Screen: Patient denies travel to an Ebola-affected area in the 21 days before illness onset. No symptoms or risks identified at this time. Initial Sepsis Screen: Does the patient meet any 2 criteria? No. Patient's initial sepsis screen is negative. Does the patient have a suspected source of infection? No. Patient's initial sepsis screen is negative. Risk Assessment: Do you want to hurt yourself or someone else? Patient reports no desire to harm self or others. Onset of symptoms was July 17, 2023. 12:09 Method Of Arrival: Ambulatory cm10 12:09 Acuity: MILDRED 3 cm10 Triage Assessment: 14:43 General: Appears in no apparent distress. comfortable, Behavior is calm, cooperative, ld1 appropriate for age. Respiratory: Reports shortness of breath cough that is the patient has mild shortness of breath. Historical: - Allergies: 12:11 Latex, Natural Rubber; cm10 - Home Meds: 12:11 None [Active]; cm10 - PMHx: 12:11 Pancreatitis; cm10 - PSHx: 12:11 None; cm10 - Immunization history:: Adult Immunizations unknown. - Social history:: Smoking status: Patient reports the use of cigarette tobacco products, denies chronic smoking, but will smoke occasionally. Screenin:34 [facility] ED Fall Risk Assessment (Adult) History of falling in the last 3 months, ld1 including since admission No falls in past 3 months (0 pts). Abuse screen: Denies threats or abuse. Denies injuries from another. Nutritional screening: No deficits noted. Tuberculosis screening: No symptoms or risk factors identified. Assessment: 13:34 Reassessment: No changes from previously documented assessment. Patient and/or family ld1 updated on plan of care and expected duration. Pain level reassessed. Patient is alert, oriented x 3, equal unlabored respirations, skin warm/dry/pink. See triage assessment. General: Appears in no apparent distress. comfortable, Behavior is calm, cooperative, appropriate for age. Pain: Denies pain. Neuro: Level of Consciousness is awake, alert, obeys commands, Oriented to person, place, time, situation. Cardiovascular: Capillary refill < 3 seconds Patient's skin is warm and dry. Rhythm is sinus rhythm. Respiratory: Airway is patent Respiratory effort is even, unlabored, Breath sounds with wheezes. GI: Abdomen is flat, non-distended. : No signs and/or symptoms were reported regarding the genitourinary system. EENT: No signs and/or symptoms were reported regarding the EENT system. Derm: No signs and/or symptoms reported regarding the dermatologic system. Musculoskeletal: No signs and/or symptoms reported regarding the musculoskeletal system. 14:42 Reassessment: Patient appears in no apparent distress at this time. No changes from ld1 previously documented assessment. Patient and/or family updated on plan of care and expected duration. Pain level reassessed. Patient is alert, oriented x 3, equal unlabored respirations, skin warm/dry/pink. 14:42 Reassessment: Patient states feeling better. ld1 Vital Signs: 12:09 BP 117 / 83; Pulse 76; Resp 16; Temp 97.9; Pulse Ox 97% ; Weight 79.38 kg; Height 6 ft. cm10 1 in. ; Pain 5/10; 13:34 BP 121 / 76; Pulse 71; Resp 18; Pulse Ox 99% on R/A; ld1 14:42 BP 118 / 71; Pulse 69; Resp 18; Pulse Ox 100% on R/A; Pain 0/10; ld1 12:09 Body Mass Index 23.09 (79.38 kg, 185.42 cm) cm10 12:09 Pain Scale: Adult cm10 14:42 Pain Scale: Adult ld1 ED Course: 11:52 Patient arrived in ED. im 11:53 Ana Moya MD is Attending Physician. sp3 12:11 Triage completed. cm10 12:12 Arm band placed on Patient placed in an exam room, on a stretcher. cm10 12:13 Lkashmi Bustillos, RN is Primary Nurse. ap3 12:24 Inserted saline lock: 20 gauge in right forearm, using aseptic technique. Blood ds4 collected. 12:29 Strep Sent. ld1 12:29 Flu Sent. ld1 12:29 SARS-COV-2 RT PCR Sent. ld1 12:52 Strep Sent. ld1 12:52 Flu Sent. ld1 12:52 SARS-COV-2 RT PCR Sent. ld1 13:34 Patient has correct armband on for positive identification. Placed in gown. Bed in low ld1 position. Call light in reach. Side rails up X2. monitoring analyst on. Pulse ox on. NIBP on. Door closed. Noise minimized. Warm blanket given. 13:34 No provider procedures requiring assistance completed. ld1 13:38 XRAY Chest (1 view) In Process Unspecified. EDMS 14:43 IV discontinued, intact, bleeding controlled, No redness/swelling at site. ld1 Administered Medications: 13:09 Drug: DuoNeb Nebulize (3:1) (2.5 mg - 0.5 mg) 3 ml Route: Nebulizer; ld1 14:40 Follow up: Response: No adverse reaction ap3 14:17 Drug: MethylPrednisoLONE IVP 125 mg Route: IVP; Site: right forearm; ld1 14:40 Follow up: Response: No adverse reaction ap3 14:17 Drug: DuoNeb Nebulize (3:1) (2.5 mg - 0.5 mg) 3 ml Route: Nebulizer; ld1 14:41 Follow up: Response: No adverse reaction ap3 Medication: 13:34 VIS not applicable for this client. ld1 Outcome: 13:54 Discharge ordered by . sp3 14:43 Discharged to home ambulatory. ld1 14:43 Condition: stable 14:43 Discharge instructions given to patient, Instructed on discharge instructions, follow up and referral plans. medication usage, Demonstrated understanding of instructions, follow-up care, medications. 14:44 Patient left the ED. ld1 Signatures: Dispatcher [employer] EDMS Mark Mckeon ds4 Lakshmi Bustillos, LUCIA RN ap3 Jayne Franco RN RN ld1 Ana Moya MD MD sp3 Kidd, Cecile im Jackson, Makayla, RN RN cm10
[2023-07-17] MEDS ORDERED: METHYLPREDNISOLONE 125 MG INJ ONE (14:25)
[2023-07-17 15:03] VITALS: TEMP 97.9
[2023-07-17 15:10] VITALS: BP 118/71; O2SAT 100
--- NOTE | 2023-07-18 13:06 | EKG ---
Test Date: 2023-07-17 Test Time: 13:15:28 Outbound Sales Executive: Gladys DE LA CRUZ MEASUREMENT RESULTS: Intervals: Rate: 67 RI: 128 QRSD: 92 QT: 394 QTc: 416 [place]: P: 59 RI: 128 QRS: 86 T: 73 INTERPRETIVE STATEMENTS: Normal sinus rhythm with sinus arrhythmia Normal ECG Compared to ECG 07/03/2009 08:12:25 Sinus bradycardia no longer present Electronically Signed On 07-18-23 13:04:16 CDT by Armand Leal
== END 2023-07-17 14:44 | disposition home or self-care (01) ==
LOC: ER 11:49
DX: J10.1 Influenza due to other identified influenza virus with other respiratory manifestations (principal); J98.01 Acute bronchospasm; F17.210 Nicotine dependence, cigarettes, uncomplicated; Z20.822 Contact with and (suspected) exposure to COVID-19; Z91.040 Latex allergy status; Z91.048 Other nonmedicinal substance allergy status
CPT/HCPCS: 87070; 85025; 80048; 36415; 83735; 85379; 80076; 87081; 84484; 83880; 87635; 87804 ×2; 71045; J7613 ×2; J7644 ×2; J2930; 93005

== ENCOUNTER 2024-09-18 08:45 | Emergency (ER) | payer SELFPAY ==
--- NOTE | 2024-09-18 10:27 | RAD REPORT ---
EXAM: XR Wrist Right 3 View HISTORY: [facility] MAIN PAIN Bed Name: 5 COMPARISON: None TECHNIQUE: 3 views of the left wrist. FINDINGS: No evidence of acute fracture or dislocation. Joint alignment is maintained. No soft tissue swelling is seen. No significant degenerative changes are present. IMPRESSION: No evidence of acute osseous abnormality.
--- NOTE | 2024-09-18 10:30 | ER ---
Nurse's Notes [facility] Name: Edward Novak Jr Age: 48 yrs Sex: Male : 1975 Arrival Date: 09/18/2024 Time: 08:45 Bed 5 Private MD: Diagnosis: Sprain of unspecified part of right wrist and hand Presentation: 09/18 08:55 Chief complaint: Patient states: "I hurt my hand at work trying to push a 400lb log". aa5 Pt c/o pain to right hand. Coronavirus screen: At this time, the client does not indicate any symptoms associated with coronavirus-19. Ebola Screen: Patient denies travel to an Ebola-affected area in the 21 days before illness onset. Initial Sepsis Screen: Does the patient meet any 2 criteria? No. Patient's initial sepsis screen is negative. Does the patient have a suspected source of infection? No. Patient's initial sepsis screen is negative. Risk Assessment: Do you want to hurt yourself or someone else? Patient reports no desire to harm self or others. Onset of symptoms was September 17, 2024. 08:55 Acuity: MILDRED 4 aa5 08:55 Method Of Arrival: Ambulatory aa5 Historical: - Allergies: 08:54 Latex; aa5 - PMHx: 08:54 Pancreatitis; aa5 - Immunization history:: Adult Immunizations unknown. - Infectious Disease History:: Denies. - Family history:: not pertinent. - Hospitalizations: : No recent hospitalization is reported. - Social history:: Smoking status: Patient denies any tobacco usage or history of. Screenin:40 [facility] ED Fall Risk Assessment (Adult) History of falling in the last 3 months, ko1 including since admission No falls in past 3 months (0 pts) Confusion or Disorientation No (0 pts) Intoxicated or Sedated No (0 pts) Impaired Gait No (0 pts) Mobility Assist Device Used No (0 pt) Altered Elimination No (0 pt) Score/Fall Risk Level 0 - 2 = Low Risk Oriented to surroundings, Maintained a safe environment, Educated pt \\T\\ family on fall prevention, incl call for assistance when getting out of bed, Assessed \\T\\ reinforced patient's understanding of fall precautions, Hourly rounding (assess needs \\T\\ fall precautionary measures) done. Abuse screen: Denies threats or abuse. Denies injuries from another. Nutritional screening: No deficits noted. Tuberculosis screening: No symptoms or risk factors identified. Assessment: 10:42 General: Appears in no apparent distress. Behavior is calm, cooperative, appropriate ko1 for age. Pain: Complains of pain in right wrist. Neuro: No deficits noted. Cardiovascular: No deficits noted. Respiratory: No deficits noted. GI: No deficits noted. : No deficits noted. EENT: No deficits noted. Derm: No deficits noted. Musculoskeletal: Reports pain in right wrist. Vital Signs: 08:55 BP 130 / 85; Pulse 65; Resp 19 S; Temp 97.5(TE); Pulse Ox 97% on R/A; aa5 10:40 BP 120 / 91; Pulse 52; Resp 16; Pulse Ox 98% ; ko1 ED Course: 08:48 Patient arrived in ED. mg5 08:49 Sánchez Victoria MD is Attending Physician. rn 08:51 Donna Gomez, RN is Primary Nurse. ko1 08:54 Arm band placed on. aa5 08:55 Triage completed. aa5 09:49 XRAY Wrist RIGHT 3 view In Process Unspecified. EDMS 10:40 Patient has correct armband on for positive identification. Allergy band placed. Bed in ko1 low position. Call light in reach. Side rails up X 1. Provided Education on: xray. Pulse ox on. NIBP on. Door closed. Noise minimized. Lights dimmed. Warm blanket given. 10:40 No provider procedures requiring assistance completed. Patient did not have IV access ko1 during this emergency room visit. Velcro wrist splint applied to right wrist. Administered Medications: No medications were administered Medication: 10:40 VIS not applicable for this client. ko1 Outcome: 10:30 Discharge ordered by . rn 10:48 Discharged to home ambulatory, ko1 10:48 Condition: stable 10:48 Discharge instructions given to patient, Instructed on discharge instructions, follow up and referral plans. Demonstrated understanding of instructions, follow-up care, splint care, 10:48 Patient left the ED. ko1 Signatures: Dispatcher [employer] EDMS Sánchez Victoria MD MD rn Calderon, Audri, RN RN aa5 Donna Gomez, LUCIA RN ko1 Agnes Mckeon mg5 Corrections: (The following items were deleted from the chart) 10:43 10:40 Velcro wrist splint applied to ko1 ko1
--- NOTE | 2024-09-18 10:30 | EDPHYS ---
Physician Documentation [facility] Name: Edward Novak Jr Age: 48 yrs Sex: Male : 1975 Arrival Date: 09/18/2024 Time: 08:45 Bed 5 Private MD: ED Physician Sánchez Victoria HPI: 09/18 09:03 This 48 yrs old Male presents to ER via Ambulatory with complaints of Hand Injury. rn 09:03 The patient or guardian reports decreased range of motion, injury, pain. The complaints rn affect the. Onset: The symptoms/episode began/occurred yesterday. Modifying factors: The symptoms are alleviated by elevation, holding still, the symptoms are aggravated by movement. Severity of symptoms: At their worst the symptoms were moderate, in the emergency department the symptoms are unchanged. The patient has not experienced similar symptoms in the past. Patient reports pushing heavy log yesterday, right hand was dorsiflexed and heard a pop. Did not fall and did not sustain direct trauma to the wrist. Patient reports pain to radial side of wrist and hurts with radial deviation of the hand. No open wounds. No weakness or numbness.. Historical: - Allergies: 08:54 Latex; aa5 - PMHx: 08:54 Pancreatitis; aa5 - Immunization history:: Adult Immunizations unknown. - Infectious Disease History:: Denies. - Family history:: not pertinent. - Hospitalizations: : No recent hospitalization is reported. - Social history:: Smoking status: Patient denies any tobacco usage or history of. ROS: 09:03 Constitutional: Negative for fever, chills, and weight loss, MS/Extremity: Positive for rn right wrist injury and pain Exam: 09:03 Constitutional: This is a well developed, well nourished patient who is awake, alert, rn and in no acute distress. MS/ Extremity: Pulses equal, no cyanosis. Neurovascular intact. Mild painful range of motion with radial deviation of the right hand, no focal bony tenderness but also has mild pain with compression of flexor muscles of the forearm. No gross deformity or significant swelling. No open wounds. Vital Signs: 08:55 BP 130 / 85; Pulse 65; Resp 19 S; Temp 97.5(TE); Pulse Ox 97% on R/A; aa5 10:40 BP 120 / 91; Pulse 52; Resp 16; Pulse Ox 98% ; ko1 MDM: 08:49 Medical Screening Exam initiated rn 10:29 Differential diagnosis: closed fracture, contusion, tedon injury, sprain, ligamentous rn injury. Data reviewed: vital signs, nurses notes, radiologic studies, plain films, and as a result, I will discharge patient. Independent interpretation of the following test(s) in the Emergency Department X-Ray: My interpretation is X-ray right wrist images negative for acute fracture or dislocation per my interpretation. Counseling: I had a detailed discussion with the patient and/or guardian regarding the historical points, exam findings, and any diagnostic results supporting the discharge/admit diagnosis, radiology results, the need for outpatient follow up, to return to the emergency department if symptoms worsen or persist or if there are any questions or concerns that arise at home. Special discussion: I discussed with the patient/guardian in detail that at this point there is no indication for admission to the hospital. It is understood, however, that if the symptoms persist or worsen the patient needs to return immediately for re-evaluation. 09/18 08:58 Order name: XRAY Wrist RIGHT 3 view; Complete Time: 10:28 rn 09/18 10:08 Order name: Splint - Wrist; Complete Time: 10:48 rn Administered Medications: No medications were administered Disposition Summary: 09/18/24 10:30 Discharge Ordered Notes: Location: Home rn Problem: new rn Symptoms: have improved rn Condition: Stable rn Diagnosis - Sprain of unspecified part of right wrist and hand rn Followup: rn - With: Private Physician - When: As needed - Reason: Recheck today's complaints, Re-evaluation by your physician Discharge Instructions: - Discharge Summary Sheet rn - Cast or Splint Care, Adult rn - Wrist Sprain varnish melter helper Forms: - Medication Reconciliation Form rn - Antibiotic creative intern - Prescription Opioid Use rn - Patient Portal Instructions rn - Leadership Thank You Letter rn Signatures: Dispatcher [employer] Sánchez Quintana MD MD rn Calderon, Audri RN RN aa5 Donna Gomez RN RN ko1
[2024-09-18 10:52] VITALS: TEMP 97.5
[2024-09-18 10:53] VITALS: BP 120/91; O2SAT 98
== END 2024-09-18 10:48 | disposition home or self-care (01) ==
LOC: ER 08:45
DX: S63.91XA Sprain of unspecified part of right wrist and hand, initial encounter (principal)
CPT/HCPCS: 99283